=== PATIENT | female | born 1950 | race Caucasian/White ===

== ENCOUNTER 2016-06-14 11:37 | Observation (INO) ==
[2016-06-14 12:39] LABS: Eosinophils # 0.1 K/mcL (0.0-0.6); Hematocrit 41.3 % (35.3-44.9); Hemoglobin 13.8 g/dL (11.5-15.4); Mean Corpuscular HGB Conc 33.4 g/dL (31.6-35.5); Mean Corpuscular Hemoglobin 28.5 pg (28.0-33.3); Mean Corpuscular Volume 85.2 fL (83.0-100.0); Mean Platelet Volume 8.5 fL (9.4-12.4); Platelet Count 224 K/mcL (140-400); Red Blood Count 4.85 M/mcL (3.82-4.97); Red Cell Distribution Width 13.1 % (11.5-14.5)
[2016-06-14 12:53] LABS: BUN/Creatinine Ratio 21 (6-26); Blood Urea Nitrogen 23 mg/dL (7-20); Carbon Dioxide 24 mEq/L (19-29); Chloride 104 mEq/L (98-109); Potassium 3.8 mEq/L (3.5-4.5); Sodium 141 mEq/L (136-145)
[2016-06-14 12:54] LABS: Calcium 8.9 mg/dL (8.6-10.8); Glucose 92 mg/dL (70-99); Osmolality,Calculated 295 (280-300); eGFR For African Americans > 60 (> 60); eGFR For Non-African Americans 51 (> 60)
[2016-06-14 13:12] LABS: Platelet Estimate Normal (Normal)
--- NOTE | 2016-06-14 13:48 | Emergency Department Note ---
Disposition Clinical Impression: Syncope and collapse, Lytic lesion of bone on x-ray Disposition: Admitted As Inpatient Condition: Good Syncope HPI - General Chief Complaint: ED Syncope Stated Complaint: "passed out" Time Seen by Provider: 06/14/16 11:39 Source: patient, EMS Limitations: no limitations Nursing Notes Reviewed: Yes Vital Signs Reviewed: Yes - History of Present Illness HPI Narrative: Patient here for evaluation of syncope. Patient was at work when she became diaphoretic and began to see spots in her vision. Patient woke up sitting down on the floor. 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 Reporting hitting her head. Positive LOC. Patient slid down next to the trash can. Patient had a previous episode approximately one year ago that did not receive workup. Unknown reason. Patient currently complains of some chest discomfort as well as a headache. Headache is been going on for approximately 2 weeks and does not have previous history of headache. - Related Data Home Medications Medication Instructions Recorded Confirmed Alprazolam [Xanax 0.5 MG Tablet] 0.5 mg PO TID PRN 06/14/16 06/14/16 FLUoxetine HCl [PROzac] 20 mg PO DAILY 06/14/16 06/14/16 Fluticasone Propionate Nasal 50 mcg NS DAILY 06/14/16 06/14/16 [Flonase] HYDROcodone/Acet 5/325 mg [[place] 1 tab PO Q6H PRN 06/14/16 06/14/16 5-325 mg] Levothyroxine [Synthroid] 100 mcg PO DAILY 06/14/16 06/14/16 Montelukast [Singulair] 10 mg PO DAILY 06/14/16 06/14/16 [place]-3/Dha/Epa/Fish Oil [Fish Oil 1,000 mg PO DAILY 06/14/16 06/14/16 1,000 mg Softgel] Trandolapril 4 mg PO DAILY 06/14/16 06/14/16 Verapamil ER (24 HR) [[place] SR] 240 mg PO DAILY 06/14/16 06/14/16 Allergies Allergy/AdvReac Type Severity Reaction Status Date / Time cefazolin [From Ancef] Allergy See Verified 05/15/16 12:06 Comments celecoxib [From Celebrex] Allergy Swelling Verified 05/15/16 12:06 of Lip/Tongue/Throat pregabalin [From Lyrica] Allergy Swelling Verified 05/15/16 12:05 of Lip/Tongue/Throat All systems ED: reviewed and negative except as stated. Constitutional: Reports: weakness. Denies: fever, chills Cardiovascular: Reports: chest pain. Denies: palpitations, dyspnea on exertion Respiratory: Denies: cough Gastrointestinal: Denies: abdominal pain, nausea Genitourinary: Denies: urgency, dysuria, frequency Musculoskeletal: Denies: back pain Integumentary: Denies: rash Neurological: Reports: headache. Denies: weakness Psychiatric: Denies: anxiety Endocrine: Denies: fatigue Past Medical History - Past Medical History Attestation: Yes The following information was validated with the patient. Source: patient Medical history: Reports: non-contributory - Social History Smoking Status: Never smoker Smokeless Tobacco Status: No Alcohol use: Reports: none Physical Exam - General Limitations: no limitations General appearance: alert, in no apparent distress - Head Head exam: atraumatic, normocephalic - Eye Eye exam: Present: normal appearance - ENT ENT exam: normal exam, normal oropharynx - Neck Neck exam: Present: normal inspection, full ROM - Chest Chest inspection: Present: normal inspection, symmetric chest wall rise. Absent : tenderness - Respiratory Respiratory exam: Present: normal lung sounds bilaterally. Absent: respiratory distress, wheezes - Cardiovascular Cardiovascular exam: Present: regular rate, normal rhythm - Abdominal Exam Abdominal exam: Present: soft, Non-Tender - Back Exam Back exam: Present: normal inspection. Absent: tenderness - Neurological Exam Neurological exam: Present: alert, oriented X3 - Psychiatric Psychiatric exam: Present: normal affect, normal mood - Skin Skin exam: Present: warm, dry, intact Course - Reevaluation(s) Reevaluation #1: Due to the unknown etiology of patient's syncope. patient will be admitted for further workup. - Consultations Consultation #1: Discussed with Dr. Galiica. Patient accepted. Vital Signs Temperature 97.6 F 06/14/16 11:38 Pulse Rate 60 06/14/16 11:38 Respiratory Rate 16 06/14/16 11:38 Blood Pressure 121/101 06/14/16 11:38 O2 Sat by Pulse Oximetry 100 06/14/16 11:38 Temperature 97.8 F 06/14/16 15:16 Pulse Rate 53 06/14/16 15:16 Respiratory Rate 16 06/14/16 15:16 Blood Pressure 159/69 06/14/16 15:16 O2 Sat by Pulse Oximetry 100 06/14/16 15:16 Oxygen Delivery Oxygen Delivery Room Air Syncope - Medical Records Medical records reviewed: Yes I reviewed the patient's medical records. - Lab Data Lab results reviewed: Yes I reviewed the patient's lab results. Result diagrams: 06/14/16 12:31 06/14/16 12:31 Lab Results 06/14/16 06/14/16 06/14/16 Range/Units 12:31 12:31 12:31 WBC 10.6 (4.3-11.1) K/mcL RBC 4.85 (3.82-4.97) M/mcL Hgb 13.8 (11.5-15.4) g/dL Hct 41.3 (35.3-44.9) % MCV 85.2 (83.0-100.0) fL MCH 28.5 (28.0-33.3) pg MCHC 33.4 (31.6-35.5) g/dL RDW 13.1 (11.5-14.5) % Plt Count 224 (140-400) K/mcL MPV 8.5 L (9.4-12.4) fL Seg Neutrophils % 57.0 % Lymphocytes % 28.0 % Monocytes % 9.0 % Eosinophils % 1.0 % Metamyelocytes % 2.0 H (0) % Myelocytes % 3.0 H (0) % Neutrophils # 6.0 (1.6-8.9) K/mcL Lymphocytes # 3.0 (0.6-4.6) K/mcL Monocytes # 1.0 (0.0-1.3) K/mcL Eosinophils # 0.1 (0.0-0.6) K/mcL Reactive Lymphocytes (Not Present) Platelet Estimate Normal (Normal) D-Dimer (0-500) ng/mLFEU Sodium 141 (136-145) mEq/L Potassium 3.8 (3.5-4.5) mEq/L Chloride 104 (98-109) mEq/L Carbon Dioxide 24 (19-29) mEq/L BUN 23 H (7-20) mg/dL Creatinine 1.07 (0.57-1.11) mg/dL Est GFR ( Amer) > 60 (> 60) Est GFR (Non-Af Amer) 51 L (> 60) BUN/Creatinine Ratio 21 (6-26) Glucose 92 (70-99) mg/dL Calculated Osmolality 295 (280-300) Calcium 8.9 (8.6-10.8) mg/dL Troponin I 0.00 (0-0.03) ng/mL 06/14/16 Range/Units 12:31 WBC (4.3-11.1) K/mcL RBC (3.82-4.97) M/mcL Hgb (11.5-15.4) g/dL Hct (35.3-44.9) % MCV (83.0-100.0) fL MCH (28.0-33.3) pg MCHC (31.6-35.5) g/dL RDW (11.5-14.5) % Plt Count (140-400) K/mcL MPV (9.4-12.4) fL Seg Neutrophils % % Lymphocytes % % Monocytes % % Eosinophils % % Metamyelocytes % (0) % Myelocytes % (0) % Neutrophils # (1.6-8.9) K/mcL Lymphocytes # (0.6-4.6) K/mcL Monocytes # (0.0-1.3) K/mcL Eosinophils # (0.0-0.6) K/mcL Reactive Lymphocytes (Not Present) Platelet Estimate (Normal) D-Dimer 815 H (0-500) ng/mLFEU Sodium (136-145) mEq/L Potassium (3.5-4.5) mEq/L Chloride (98-109) mEq/L Carbon Dioxide (19-29) mEq/L BUN (7-20) mg/dL Creatinine (0.57-1.11) mg/dL Est GFR ( Amer) (> 60) Est GFR (Non-Af Amer) (> 60) BUN/Creatinine Ratio (6-26) Glucose (70-99) mg/dL Calculated Osmolality (280-300) Calcium (8.6-10.8) mg/dL Troponin I (0-0.03) ng/mL - Radiology Data Radiology results reviewed: Yes I reviewed the patient's radiology results. - EKG Data EKG attestation: Yes I reviewed and interpreted this EKG. EKG results narrative: EKG shows sinus bradycardia with ventricular rate of [address] interval 197. QRS 86. QTC 420. Patient has no significant ST elevations or depressions. Patient has Q waves in lead 3 and aVF. No previous EKG. Attestation Statement - Attestation Attestation: For this encounter, I have reviewed the resident, [employer], or PA documentation, treatment plan, and medical decision making; and I have had face to face time with this patient. 66-year-old female presents with concerns of syncope. 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 Patient is unsure if she hit her head or not. Is unsure of how long she was unconscious. Denies incontinence or biting her tongue. No history of seizure activity in the past. No history of cardiac disease in the past. 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 On physical examination today the patient is A&O to person, place, time and situation. No focal deficits noted on exam. Finger to nose testing and [id number] testing intact bilaterally. No sensory deficits on exam. CT of the head shows a possible lytic lesion of the skull. Laboratory evaluation was within normal limits. CT of the chest did not show acute infiltrate or other abnormality. Patient is comfortable with plan to admit her to the hospital for continued care for syncope.
[2016-06-14] MEDS ORDERED: Acetaminophen 325 MG TABLET PO PRN ×2 (16:05→16:48)
[2016-06-14] MEDS ORDERED: Ondansetron 4 MG/2 ML VIAL IVP PRN (16:05)
[2016-06-14] MEDS ORDERED: Naloxone 0.4 MG/ML INJ IVP PRN (16:05)
[2016-06-14] MEDS ORDERED: *HR* HYDROcodone/Acet 5/325 mg TABLET PO PRN ×2 (16:10→16:48)
[2016-06-14] MEDS ORDERED: ALPRAZolam 0.5 MG TABLET PO PRN (16:10)
[2016-06-14] MEDS ORDERED: 0.9 % Sodium Chloride 1,000 ML IVC SCH (16:15)
--- NOTE | 2016-06-14 16:29 | Internal Med History&Physical ---
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 Subramanian) consulted: will obtain MRI head w/wo contrast and EEG as per neurology Neurology to see the patient in am. (3) Hypertension Current visit: Yes Status: Chronic BP within acceptable range continue home medications Qualifiers: Hypertension type: essential hypertension Qualified Code(s): I10 - Essential (primary) hypertension (4) Chronic pain syndrome Current visit: Yes Status: Chronic Continue home medications (5) Hypothyroidism Current visit: Yes Status: Chronic Continue home dose of Levothyroxine Qualifiers: Hypothyroidism type: unspecified Qualified Code(s): E03.9 - Hypothyroidism , unspecified (6) DVT prophylaxis Current visit: Yes Status: Acute Heparin SQ Internal Medicine - H&P: HPI Chief complaint: s/p syncopal episode Admitted From: Home Plans for Post Hospital Care: Home History of present illness: Ms. Lowe is a 66 year old female with PMH of Hypertension, Hyperlipidemia, hypothyroidism, CKD stage 3, anxiety, depression, fibromyalgia, chronic pain syndrome, carcinoma in situ s/p lumpectomy, and toxoplasmosis with scarring/ left eye blindness who is brought to the ER s/p syncopal episode. Patient states she was at work when she started feeling extremely weak and light headed , along with seeing dark black spots prior to collapsing to the ground. She had a witnessed syncopal episode/LOC without any reported prodromal symptoms. She states she recently finished abx course for a URI and reports of having a syncopal episode last year as she was recovering from a URI. At that time, she did not seek medical help. She reports of having generalized weakness for months and states she has been having chills and sweats for weeks. States the abx made her feel worst and did not relieve her weakness/daily sweats/chills. Denies any cough, sore throat, runny nose, fever, or chills at this time. She also reports of chronically having a diffuse dull headache that has been there for months. At this time she is resting in bed with family present at bedside. She denies any headache, lightheadedness, dizziness, chest pain, palpitations, shortness of breath, abd pain, n/v, fever, or chills at this time. FMH: Significant for heart disease and diabetes mellitus Past Med Surg Social Fam HX - Past Medical History Medical history: fibromyalgia, hyperlipidemia, hypertension, thyroid disease Psychiatric history: anxiety, depression - Past Surgical History Surgical History: cholecystectomy, hysterectomy, orthopedic, other, SHAWN/BSO - Social History Smoking Status: Never smoker Smokeless Tobacco Status: No Alcohol use: none Drug use: none - Family History Mother Hx Family Cardiac Disorders: Yes (RI/Heart disease) Father Hx Family Cardiac Disorders: Yes (RI/Heart diease) Internal Medicine - H&P: Meds Alprazolam [Xanax 0.5 MG Tablet] 0.5 mg PO TID PRN 06/14/16 [History] FLUoxetine HCl [PROzac] 20 mg PO DAILY 06/14/16 [History] Fluticasone Propionate Nasal [Flonase] 50 mcg NS DAILY 06/14/16 [History] HYDROcodone/Acet 5/325 mg [[place] 5-325 mg] 1 tab PO Q6H PRN 06/14/16 [History] Levothyroxine [Synthroid] 100 mcg PO DAILY 06/14/16 [History] Montelukast [Singulair] 10 mg PO DAILY 06/14/16 [History] [place]-3/Dha/Epa/Fish Oil [Fish Oil 1,000 mg Softgel] 1,000 mg PO DAILY 06/14/16 [History] Trandolapril 4 mg PO DAILY 06/14/16 [History] Verapamil ER (24 HR) [Calan SR] 240 mg PO DAILY 06/14/16 [History] Allergies cefazolin [From Ancef] Allergy (Verified 05/15/16 12:06) See Comments Was told she can't take it celecoxib [From Celebrex] Allergy (Verified 05/15/16 12:06) Swelling of Lip/Tongue/Throat pregabalin [From Lyrica] Allergy (Verified 05/15/16 12:05) Swelling of Lip/Tongue/Throat All Systems PM: A 10-system review of systems was performed and is negative for pertinent findings except as documented above in the HPI. - Constitutional Constitutional: as per HPI - Constitutional Vitals: Temp Pulse Resp BP Pulse Ox 97.8 F 53 16 159/69 100 06/14/16 15:16 06/14/16 15:16 06/14/16 15:16 06/14/16 15:16 06/14/16 15:16 General appearance: Present: cooperative, A&O X 3, pleasant, no acute distress, answers questions appropriately - Head Head exam: Present: atraumatic, normocephalic - Eye Eye exam: Present: conjuntiva pink, sclera anicteric (Strabismus in right eye) - Respiratory Respiratory exam: Present: CTAB. Absent: respiratory distress, wheezes - Cardiovascular Cardiovascular exam: Present: RRR, +S1, +S2 - GI/Abdominal GI/Abdominal exam: Present: normal bowel sounds, soft. Absent: distended, tenderness - Extremities Exam Extremities exam: Present: warm, radial pulses palpable and symetrical. Absent : calf tenderness, pedal edema, tenderness - Neurological Exam Neurological exam: Present: alert, oriented X3, no focal deficits - Psychiatric Psychiatric exam: Present: normal affect, normal mood Internal Med - H&P Results - Labs CBC & Chem 7: 06/14/16 12:31 06/14/16 12:31
[2016-06-14] MEDS: *HR* Heparin 5,000 UNIT/ML VIAL SQ SCH (18:30)
[2016-06-15 05:03] LABS: Eosinophils # 0.2 K/mcL (0.0-0.6); Hematocrit 38.9 % (35.3-44.9); Hemoglobin 13.3 g/dL (11.5-15.4); Mean Corpuscular HGB Conc 34.2 g/dL (31.6-35.5); Mean Corpuscular Hemoglobin 28.9 pg (28.0-33.3); Mean Corpuscular Volume 84.4 fL (83.0-100.0); Platelet Count 206 K/mcL (140-400); Red Blood Count 4.61 M/mcL (3.82-4.97); Red Cell Distribution Width 13.1 % (11.5-14.5)
[2016-06-15 05:19] LABS: BUN/Creatinine Ratio 27 (6-26); Blood Urea Nitrogen 20 mg/dL (7-20); Calcium 8.6 mg/dL (8.6-10.8); Carbon Dioxide 25 mEq/L (19-29); Chloride 105 mEq/L (98-109); Glucose 81 mg/dL (70-99); Magnesium 2.1 mg/dL (1.6-2.6); Osmolality,Calculated 288 (280-300); Phosphorous 3.9 mg/dL (2.3-4.7); Sodium 138 mEq/L (136-145); eGFR For African Americans > 60 (> 60); eGFR For Non-African Americans > 60 (> 60)
[2016-06-15 06:04] LABS: Lymphocytes # 3.5 K/mcL (0.6-4.6); Monocytes # 0.4 K/mcL (0.0-1.3); Neutrophils # 4.8 K/mcL (1.6-8.9); Platelet Estimate Normal (Normal)
[2016-06-15] MEDS: *HR* Heparin 5,000 UNIT/ML VIAL SQ SCH (06:04)
[2016-06-15 06:05] LABS: Macrocytosis Present (Not Present); Reactive Lymphocytes Present (Not Present)
[2016-06-15] MEDS ORDERED: Fluticasone Propionate Nasal 50 MCG/SPRAY BOTTLE NS SCH (09:00)
[2016-06-15] MEDS ORDERED: FLUoxetine 20 MG CAPSULE PO SCH (09:00)
[2016-06-15] MEDS ORDERED: Verapamil ER (24 HR) 240 MG TABLET.ER PO SCH (09:00)
[2016-06-15] MEDS ORDERED: Lisinopril 20 MG TABLET PO SCH (09:00)
--- NOTE | 2016-06-15 12:53 | ECHO - Doppler Report ---
Echocardiogram Name: Coretta Lowe Date of Study: 06/15/2016 Date: 1950 Ht: 66.0 in Medical Record#: [id number] Age: 66 Wt: 136.0 lb Gender: Female BSA: 1.7 Order #: [id number] Location: [facility] Room #: [id number] Reading Physician: Sheryl Mendez DO Police Chief: Leticia Madden T Ordering Physician: Cosme Pyle MD Primary Physician: Lyn Paiz MD Impressions: LVEF 55%. Normal left ventricular size and systolic function. There is evidence of mild diastolic dysfunction of the left ventricle. Normal right ventricular size and function. No significant valvular dysfunction. No pulmonary hypertension. Left Ventricular Wall Motion: Rest Echo Findings All wall segments showed normal motion. Findings: Study Quality * Technically adequate exam. ECG Findings * Sinus bradycardia. Aortic Valve * No aortic regurgitation. * Trileaflet aortic valve. * Normal aortic valve structure. * No aortic stenosis. Mitral Valve * No mitral regurgitation. * Normal mitral valve structure. * No mitral stenosis. Tricuspid Valve * Tricuspid valve not well visualized. * Trace tricuspid regurgitation. * Estimated RA pressure is 3 mmHg. * Estimated RVSP is 19 mmHg. * No pulmonary hypertension. Pulmonic Valve * Pulmonic valve is not well visualized. * No pulmonic stenosis. * No pulmonic regurgitation. Pulmonary Artery * Pulmonary artery not well visualized. Left Ventricle * LVEF 55%. * Normal LV chamber size, wall thickness and function. * Mild left ventricular diastolic dysfunction. Right Ventricle * Normal right ventricular structure and function. Left Atrium * Normal left atrial size. Right Atrium * Normal right atrial size. Interatrial Septum * No evidence of PFO by color Doppler. IVC * Normal IVC dimensions and inspiratory collapse. Pericardium * There is no pericardial effusion present. Aorta * Normally sized aortic root. History Hypertension Family History of CAD 09/2013 a Previous Echo was performed. Measurements: BP: 161/ 69 2D Normal Values RVIDd: 3.00 cm <2.7 cm IVSd: 1.00 cm 0.6 - 1.0 cm LVIDd: 4.10 cm 3.7 - 5.6 cm LVPWd: .70 cm 0.6 - 1.1 cm LVIDs: 2.50 cm 1.5 - 3.6 cm AO: 2.50 cm < 4.0 cm LA: 3.30 cm 2.0 - 4.0cm %FS: 39.00 cm >25 % LA volume: 40 Mitral Valve Dec Time:306.00 msec Peak E:.48 m/sec Peak A:.76 m/sec E/A Ratio:0.6 E/E' Lat Ratio:10 E/E' Med Ratio:16.4 Tricuspid Valve TV Regurg Peak Grad: 16.00mmHg TV Regurg Peak El: 2.00m/sec Updated by Sheryl Mendez on 06/15/2016 12:46:00 PM electronically signed on 06/15/2016 12:46:38 PM with status of Final Wall Motion Clements: 1=Normal, 2=Hypokinesis, 3=Akinesis, 4=Dyskinesis, 5=Aneurysmal, 6=Hyperkinetic, X=Not Visualized (Blank)=Missing
--- NOTE | 2016-06-15 13:31 | EEG/EMG/Oth Biometrics Report ---
EEG Procedure Report Date of procedure: 06/15/16 EEG Procedure: Routine EEG Procedure Note: Routine 18-channel digital EEG was obtained to rule out any seizure activity or focal abnormalities. FINDINGS: Background rhythm during awake stage shows well-organized, well- developed, average voltage 8 to 9 hertz alpha activity in the posterior regions. It blocks with eye opening and it is bilaterally synchronous and symmetrical. No [id number] discharges or any lateralizing abnormalities are seen. Photic stimulation did not produce any abnormalities. Hyperventilation was performed for 3 minutes. No abnormalities were found during the procedure. Intermittent EMG artifacts were seen. Stage II sleep was not achieved. IMPRESSION: Normal awake study. No epileptiform discharges or any other paroxysmal activities or focal abnormalities seen. Clinical correlation is recommended pls note that normal EEG does not exclude the diagnosis of seizure or epilepsy if clinical suspicion is high consider hour-long sleep deprived EEG versus ambulatory EEG
--- NOTE | 2016-06-15 13:33 | Neurology - Consult Note ---
Date of Encounter: 06/15/16 Time of Encounter: 08:20 Assessment and Plan (1) Syncope and collapse Current Visit: Yes Status: Acute Patient's symptoms of passing out but being diaphoretic before the event without any significant postictal state along with symptoms of upper respiratory tract infection perhaps could be a vasovagal phenomenon or could be a cardiogenic syncope. She had a previous episode about a year ago more or less with similar presentation and at that that time she also has upper respiratory tract infection. Other possibility that it could be a seizure seem to be less likely she already had an EEG that did not show any interictal abnormalities no EEG remains in the differential but description is not typical of the seizure at this time would not recommend starting or any seizure medication. Recommend checking for other metabolic abnormalities like vitamin B12 folate TSH as well as any other infectious etiology that may be causing or contributing to her symptoms. At the same time may check cardiac workup for syncope as well (2) Abnormal magnetic resonance imaging of head Current Visit: Yes Status: Acute CT scan and MRI results were discussed with the patient that is a calvarial lesion noted in the left parietal lobe according to the report it seems to be consistent with benign hemangioma. There is no evidence of any stroke or any other intracranial abnormality. I would recommend repeating an MRI scan with and without contrast in next 6 month delay to year to document the stability and that could be done as an outpatient by the primary care or she could be seen by neurology as well. History of Present Illness HPI: Ms. Lowe is a 66 year old female seen in neurology consultation for syncope. Patient was at work when she became diaphoretic and began to see spots in her vision. Patient woke up sitting down on the floor. Patient episode happened at work at this time she is not sure that she did not hit her head or not but she did not lose consciousness duringassociated jerking or shaking reported. She did not like she may have slid down next to the trash can. She did felt lightheaded dizzy and also has sweating before the episode when she wake up she did not have any real bad confusion and she was back to her baseline father quickly she denies any incontinence Patient had a previous episode approximately one year ago that did not receive workup. Patient currently complains of some chest discomfort as well as a headache. Headache is been going on for approximately 2 weeks and does not have previous history of head, denies any focal motor weakness or any other associated symptoms at this time she denies any history of seizure or any history of head injury. She did have an eye surgery's's several years ago for the correction of the muscle and also has cataract removed Past Med Surg Social Fam HX - Past Medical History Medical history: non-contributory Psychiatric history: anxiety, depression - Past Surgical History Surgical History: cholecystectomy, hysterectomy, orthopedic, other, SHAWN/BSO - Social History Smoking Status: Never smoker Smokeless Tobacco Status: No Alcohol use: none Drug use: none - Family History Mother Hx Family Cardiac Disorders: Yes (DE/Heart disease) Father Hx Family Cardiac Disorders: Yes (DE/Heart diease) Medications and Allergies Alprazolam [Xanax 0.5 MG Tablet] 0.5 mg PO TID PRN 06/14/16 [History] FLUoxetine HCl [PROzac] 20 mg PO DAILY 06/14/16 [History] Fluticasone Propionate Nasal [Flonase] 50 mcg NS DAILY 06/14/16 [History] HYDROcodone/Acet 5/325 mg [[place] 5-325 mg] 1 tab PO Q6H PRN 06/14/16 [History] Levothyroxine [Synthroid] 100 mcg PO DAILY 06/14/16 [History] Montelukast [Singulair] 10 mg PO DAILY 06/14/16 [History] [place]-3/Dha/Epa/Fish Oil [Fish Oil 1,000 mg Softgel] 1,000 mg PO DAILY 06/14/16 [History] Trandolapril 4 mg PO DAILY 06/14/16 [History] Verapamil ER (24 HR) [[place] SR] 240 mg PO DAILY 06/14/16 [History] Allergies cefazolin [From Ancef] Allergy (Verified 05/15/16 12:06) See Comments Was told she can't take it celecoxib [From Celebrex] Allergy (Verified 05/15/16 12:06) Swelling of Lip/Tongue/Throat pregabalin [From Lyrica] Allergy (Verified 05/15/16 12:05) Swelling of Lip/Tongue/Throat All Systems: A 10-system review of systems was performed and is negative for pertinent findings except as documented above in the HPI. Physical Examination - Vital Signs Vital Signs: Initial Vital Signs Temp Pulse Resp BP Pulse Ox 97.6 F 60 16 121/101 100 06/14/16 11:38 06/14/16 11:38 06/14/16 11:38 06/14/16 11:38 06/14/16 11:38 - Constitutional General appearance: comfortable - Neurologic Detailed motor examination: full strength in all major muscle groups Motor examination - right side: 5: deltoids, biceps, triceps, wrist flexion, wrist extension, supreme court justice, hip flexors, tibialis Anterior, quadriceps, toe extension (EHL), plantarflexion Motor examination - left side: 5: deltoids, biceps, triceps, wrist flexion, wrist extension, hip flexors, supreme court justice, quadriceps, tibialis Anterior, toe extension (EHL), plantarflexion Detailed sensory examination: intact Reflex and gait examination: intact Reflexes: Biceps: 1+, Triceps: 1+, Brachioradialis: 1+, Patella: 1+, Achilles: 1 + Mental Status Examination: awake, alert, oriented to person, oriented to place, oriented to time, follows commands appropriately, answers questions appropriately, no agnosia, no aphasia, no aproxia Cranial nerve examination: PERRL, visual arriaza intact, corneal reflexes brisk symmetrically, sensory to face intact, mastication intact, no facial asymmetry is present, no dysarthria, hearing is intact symmetrically, soft palate elevates bilaterally upon phonation, gag reflex intact, flexes SCM and trapezius muscles symmetrically with full power, tongue protrudes midline, no atrophy or facial fasiculations present Cranial Nerve Exam: CN IV palsy: Right (History of corrective surgery in the past) Cerebellar examination: no dysmetria, performs finger to nose and heel to miller symmetrically without ataxia, no gait ataxia, no truncal ataxia, no difficulty with rapid alternating movements Results - Laboratory Findings CBC and BMP: 06/15/16 04:29 06/15/16 04:29 Abnormal lab findings: Abnormal lab results MPV 9.0 fL (9.4-12.4) L 06/15/16 04:29 Metamyelocytes % 2.0 % (0) H 06/14/16 12:31 Myelocytes % 3.0 % (0) H 06/14/16 12:31 Reactive Lymphocytes Present (Not Present) A 06/15/16 04:29 Macrocytosis Present (Not Present) A 06/15/16 04:29 D-Dimer 815 ng/mLFEU (0-500) H 06/14/16 12:31 BUN/Creatinine Ratio 27 (6-26) H 06/15/16 04:29 - Diagnostic Findings Additional findings: CT scan which shows concern of lytic lesion in the left parietal area MRI of the brain: Not show any intracranial abnormality there is not evidence of left calvarial lesion was noted on the CT scan seems to be consistent with benign hemangioma Consult Discharge Plan - Plan Referrals: Lyn Paiz MD [Primary Care Provider] -
[2016-06-15 15:33] VITALS: BP 114/70
--- NOTE | 2016-06-15 17:09 | Discharge Summary ---
Date of Encounter: 06/15/16 Time of Encounter: 17:07 - Discharge Diagnosis (1) Abnormal magnetic resonance imaging of head Priority: Primary Status: Acute (2) Syncope Priority: Primary Status: Acute Qualifiers: Syncope type: vasovagal syncope Qualified Code(s): R55 - Syncope and collapse (3) Chronic pain syndrome Priority: Secondary Status: Chronic (4) Hypertension Priority: Secondary Status: Chronic Qualifiers: Hypertension type: essential hypertension Qualified Code(s): I10 - Essential (primary) hypertension (5) Hypothyroidism Priority: Secondary Status: Chronic Qualifiers: Hypothyroidism type: acquired Qualified Code(s): E03.9 - Hypothyroidism, unspecified - Discharge Medications Home Medications: Alprazolam [Xanax 0.5 MG Tablet] 0.5 mg PO TID PRN 06/14/16 [History] FLUoxetine HCl [Prozac] 20 mg PO DAILY 06/14/16 [History] Fluticasone Propionate Nasal [Flonase] 50 mcg NS DAILY 06/14/16 [History] HYDROcodone/Acet 5/325 mg [[place] 5-325 mg] 1 tab PO Q6H PRN 06/14/16 [History] Levothyroxine [Synthroid] 100 mcg PO DAILY 06/14/16 [History] Montelukast [Singulair] 10 mg PO DAILY 06/14/16 [History] [place]-3/Dha/Epa/Fish Oil [Fish Oil 1,000 mg Softgel] 1,000 mg PO DAILY 06/14/16 [History] Trandolapril 4 mg PO DAILY 06/14/16 [History] Verapamil ER (24 HR) [[place] SR] 240 mg PO DAILY 06/14/16 [History] Allergies/Adverse Reactions: Allergies cefazolin [From Ancef] Allergy (Verified 05/15/16 12:06) See Comments Was told she can't take it celecoxib [From Celebrex] Allergy (Verified 05/15/16 12:06) Swelling of Lip/Tongue/Throat pregabalin [From Lyrica] Allergy (Verified 05/15/16 12:05) Swelling of Lip/Tongue/Throat Procedures/tests Complete & Pending: Procedures Performed prior 72 hours Category Date Time Status MR head/brain wo/w con [MR] Stat MRI 06/14/16 16:13 Completed EV carotid duplex imaging BI Stat Y 06/15/16 16:15 Completed EV echocardiogram Stat Y 06/15/16 16:14 Completed Date of admission: 06/14/16 14:28 Primary care physician: Lyn Paiz Consults: 06/14/16 16:10 Consult to Physician [CONS] Routine Consulting Provider: Kishore Subramanian I Reason for Consult: syncope and concerning lesions on CT head Call Completed: Yes 06/15/16 12:05 Consult to Interpret Exam [CONS] Routine Consulting Provider: Kishore Subramanian I Consult to Interpret Exam: Interpret EEG Discharging clinician: Shama Acosta Anticipated date of discharge: 06/15/16 - Patient Status Disposition: Home, Self-Care Condition: Good Functional capacity at discharge: independent ambulation Overall status at discharge: patient is progressing back to baseline - Discharge Instructions Instructions: Syncope (DC) Follow Up With: Lyn Paiz MD [Primary Care Provider] - (We have requested a follow up appointment with Lyn Paiz. The office will call you at home with an appointment date and time.) Additional Instructions: F/up with Neurology in 6 months - Diet and Activity Activity: resume usual activities as tolerated Diet: low fat, low cholesterol, low salt diet (oral hydration encouraged) Hospital course: Ms. Lowe is a 66 year old female with the above medical problems, who was admitted with syncope while at work. Initial labs and EKG showed no acute abnormality. CT head showed a possible lytic lesion in the left parietal lobe. MRI brain was done to further evaluate this lesion and showed mildly expansile left parietal calvarial lesions consistent with benign hemangiomas. Neurology was consulted for syncope and this is less likely related to neurologic etiology and recommended to repeat MRI brain in 6-12 months to follow up the size of hemangiomas. EEG was done which showed no evidence of seizure-like activity. Echocardiogram was done which showed 55% ejection fraction, normal left ventricular size and systolic function with mild diastolic dysfunction of left ventricle. Patient remained hemodynamically stable while in the hospital and had no orthostatic hypotension. Telemetry monitoring was uneventful and serum troponins were normal. She is medically stable for discharge at this time and was recommended to stay hydrated. Her syncope could likely be vasovagal related to her recent upper respiratory tract infection and dehydration. - Time Spent with Patient Total time spent providing and/or coordinating discharge services: Greater than 30 minutes (40 min) - Constitutional Vitals: Temp Pulse Resp BP Pulse Ox 98.1 F 74 16 114/70 98 06/15/16 15:32 06/15/16 15:32 06/15/16 15:32 06/15/16 15:32 06/15/16 15:32 General appearance: Present: A&O X 3, answers questions appropriately - Respiratory Respiratory exam: Present: CTAB. Absent: accessory muscle use, rales, rhonchi, wheezes - Cardiovascular Cardiovascular exam: Present: RRR, +S1, +S2. Absent: diastolic murmur, gallop, rubs, systolic murmur
--- NOTE | 2016-06-16 15:25 | Electrocardiograph Report ---
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
--- NOTE | 2016-06-17 12:45 | Carotid Imaging Report ---
Carotid Duplex Patient Name:Coretta Lowe Order Number:[id number] Procedure Date:06/15/2016 Date:8Age:66 yrs Gender:Female Lt BP:150 / 74 mmHg Rt.BP:158 / 72 mmHgHeart Rate: Location:[facility] Room #: 3B54 Manager Placement:Leticia Madden, RVT Referring MD:Cosme Pyle MD welding supervisor:Lyn Paiz MD Reading MD:Kirk Wang MD Primary Indications:Syncope Impressions: Findings: Bilateral carotid system is essentially normal. Recommendations: After imaging the patient returned to their room. Test completed on 06/15/2016 at 9:10:00 am. Findings Carotid Duplex: Right: The right proximal common carotid artery has a PSV of 101 cm/s and a EDV of 14 cm/s. The right mid common carotid artery has a PSV of 85 cm/s and a EDV of 14 cm/s. The right distal common carotid artery has a PSV of 77 cm/s and a EDV of 16 cm/s. The right bifurcation has a PSV of 62 cm/s and a EDV of 14 cm/s. There is irregular heterogeneous plaque. The right proximal internal carotid artery has a PSV of 55 cm/s and a EDV of 17 cm/s. The right mid internal carotid artery has a PSV of 75 cm/s and a EDV of 22 cm/s. The right distal internal carotid artery has a PSV of 74 cm/s and a EDV of 24 cm/s. The right eca has a PSV of 112 cm/s and a EDV of 13 cm/s. The right vertebral artery has a PSV of 46 cm/s and a EDV of 12 cm/s. Left: The left proximal common carotid artery has a PSV of 89 cm/s and a EDV of 12 cm/s. The left mid common carotid artery has a PSV of 109 cm/s and a EDV of 23 cm/s. The left distal common carotid artery has a PSV of 115 cm/s and a EDV of 23 cm/s. The left bifurcation has a PSV of 105 cm/s and a EDV of 22 cm/s. The left proximal internal carotid artery has a PSV of 89 cm/s and a EDV of 22 cm/s. There is smooth heterogeneous plaque. The left mid internal carotid artery has a PSV of 69 cm/s and a EDV of 24 cm/s. The left distal internal carotid artery has a PSV of 82 cm/s and a EDV of 29 cm/s. The left eca has a PSV of 93 cm/s and a EDV of 13 cm/s. The left vertebral artery has a PSV of 62 cm/s and a EDV of 18 cm/s. Prior Study: No prior study available for comparison. Carotid Results Right PSV EDV Assessment Proximal CCA 101 14 Mid CCA 85 14 Distal CCA 77 16 Bifurcation 62 14 Proximal ICA 55 17 Mid ICA 75 22 Distal ICA 74 24 ECA 112 13 Vertebral Artery 46 12 Left PSV EDV Assessment Proximal CCA 89 12 Mid CCA 109 23 Distal CCA 115 23 Bifurcation 105 22 Proximal ICA 89 22 Mid ICA 69 24 Distal ICA 82 29 ECA 93 13 Vertebral Artery 62 18 Ratio's Right ICA/CCA Ratio: 0.64 ICA/CCA Values: 55/85 Left ICA/CCA Ratio: 0.89 ICA/CCA Values: 89/109 Updated by Kirk Wang MD on 06/17/2016 12:40:47 PM electronically signed on 06/17/2016 12:41:04 PM with status of Final
== END 2016-06-15 17:45 | disposition home or self-care (01) ==
LOC: 3BNU 11:37 → EMEROO 11:37 → SUATTDRO 14:28 → 3BNU 14:47
PROVIDERS: ADMIT Internal Medicine; ATTEND Internal Medicine